=== PATIENT | male | born 1960 | race Caucasian/White ===

== ENCOUNTER 2017-08-31 10:08 | Emergency (ER) | payer OTHER ==
--- NOTE | 2017-08-31 10:30 | PDOC ---
History of Present Illness - General History Source: Patient Exam Limitations: No Limitations - History of Present Illness Initial Comments: 08/31/17 10:57 The patient is a 56 year old male, with a significant past medical history of chronic back pain, who presents to the emergency department with LLQ pain since yesterday. The patient describes his pain is sharp and intermittent in nature. He notes his pain often comes in wave with an episode of abdominal pain lasting hours. Pain is non-radiating and he ranks it a 8/10 in pain intensity, ranking it a 10/10 at its worst. He reports his pain is often made worse after a meal. Notes having flu like symptoms on Friday, including a runny nose and dry cough, which has since resolved. Notes not being pass a bowel movement for the past two days. He denies any recent fevers, chills, headache or dizziness. He denies any recent nausea, vomit, diarrhea. He denies any recent chest pain or shortness of breath. He denies any recent dysuria, frequency, urgency or hematuria. Allergies: NKA Past surgical history: Previous back surgeries. Social History: Nonsmoker. Denies EtOH use and recreational drug use. <Raymond Rushing - Last Filed: 08/31/17 10:59> <Mera Nuñez - Last Filed: 08/31/17 15:53> - General Chief Complaint: Pain Stated Complaint: ABDOMINAL PAIN Time Seen by Provider: 08/31/17 10:30 Past History <Raymond Rushing - Last Filed: 08/31/17 10:59> - Immunization History Td Vaccination: Yes Immunization Up to Date: Yes - Suicide/Smoking/Psychosocial Hx Smoking Status: Yes (QUIT X 1 YR AGO) Smoking History: Never smoked Have you smoked in the past 12 months: No Number of Cigarettes Smoked Daily: 0 Hx Alcohol Use: No Substance Use Type: Alcohol <Mera Nuñez - Last Filed: 08/31/17 15:53> - Past Medical History Allergies/Adverse Reactions: Allergies Allergy/AdvReac Type Severity Reaction Status Date / Time No Known Allergies Allergy Verified 08/31/17 11:45 Home Medications: Ambulatory Orders NK [No Known Home Medication] 08/31/17 Review of Systems - Review of Systems Able to Perform ROS?: Yes Comments:: 08/31/17 10:51 GENERAL/CONSTITUTIONAL: No fever or chills. No weakness. HEAD, EYES, EARS, NOSE AND THROAT: No change in vision. No ear pain or discharge. No sore throat. CARDIOVASCULAR: No chest pain or shortness of breath. RESPIRATORY: No cough, wheezing, or hemoptysis. GASTROINTESTINAL: +LLQ pain. No nausea, vomiting, diarrhea or constipation. GENITOURINARY: No dysuria, frequency, or change in urination. MUSCULOSKELETAL: No joint or muscle swelling or pain. No neck or back pain. SKIN: No rash NEUROLOGIC: No headache, vertigo, loss of consciousness, or change in strength/ sensation. ENDOCRINE: No increased thirst. No abnormal weight change. HEMATOLOGIC/LYMPHATIC: No anemia, easy bleeding, or history of blood clots. ALLERGIC/IMMUNOLOGIC: No hives or skin allergy. <Raymond Rushing - Last Filed: 08/31/17 10:59> *Physical Exam - Physical Exam Comments: 08/31/17 10:59 GENERAL: Awake, alert, and fully oriented, in moderate distress HEAD: No signs of trauma EYES: PERRLA, EOMI, sclera anicteric, conjunctiva clear ENT: Auricles normal inspection, hearing grossly normal, nares patent, oropharynx clear without exudates. Moist mucosa NECK: Normal ROM, supple, no lymphadenopathy, JVD, or masses LUNGS: Breath sounds equal, clear to auscultation bilaterally. No wheezes, and no crackles HEART: Regular rate and rhythm, normal S1 and S2, no murmurs, rubs or gallops ABDOMEN: Soft, tender in the LLQ normoactive bowel sounds. No guarding, no rebound. No masses EXTREMITIES: Normal range of motion, no edema. No clubbing or cyanosis. No cords, erythema, or tenderness NEUROLOGICAL: Cranial nerves II through XII grossly intact. Normal speech, normal gait SKIN: Warm, Dry, normal turgor, no rashes or lesions noted. <Raymond Rushing - Last Filed: 08/31/17 10:59> ED Treatment Course - LABORATORY CBC & Chemistry Diagram: 08/31/17 11:41 08/31/17 11:41 <Mera Nuñez - Last Filed: 08/31/17 15:53> Medical Decision Making - Medical Decision Making 08/31/17 15:42 Pt presents to the ED complaining of severe llq pain without fever, nausea or vomiting, or urinary complaints. Tender in the LLQ on my initial exam. Differential included diverticulitis or abscess, less likely obstruction. Labs and CT are negative for acute findings. Patient will be discharged with follow up with his PMD. <Mera Nuñez - Last Filed: 08/31/17 15:53> *DC/Admit/Observation/Transfer - Attestations Scribe Attestion: 08/31/17 10:52 Documentation prepared by Raymond Rushing, acting as medical management specialist for Mera Nuñez MD. <Raymond Rushing - Last Filed: 08/31/17 10:59> - Discharge Dispostion Admit: No <Mera Nuñez - Last Filed: 08/31/17 15:53> Diagnosis at time of Disposition: Abdominal pain Qualifiers: Abdominal location: left lower quadrant Qualified Code(s): R10.32 - Left lower quadrant pain - Discharge Dispostion Disposition: HOME Condition at time of disposition: Good - Referrals Referrals: Jameson Zapata MD [Staff Physician] - - Patient Instructions Printed Discharge Instructions: DI for Abdominal Pain-Adult Additional Instructions: You came to the ED to be evaluated for abdominal pain. Your cat scan and lab work showed no evidence of an emergent condition. You should return immediately to the ED for severe pain, severe nausea and vomiting, other new or worsening symptoms. Make sure that you follow up with your primary care doctor.
[2017-08-31] MEDS ORDERED: morphine CARPU-JECT 10 MG/1 ML DISP.SYRIN IVPUSH ONE (10:59)
[2017-08-31] MEDS ORDERED: morphine CARPU-JECT 10 MG/1 ML DISP.SYRIN ONE (11:25)
[2017-08-31 11:45] VITALS: TEMP 98.7; BMI 23.8
[2017-08-31 12:03] LABS: BASO % 0.3 % (0-2.0); HEMATOCRIT 44.5 % (35.4-49); HEMOGLOBIN 14.8 GM/dL (11.7-16.9); LYMPH % 6.1 % (8-40); MCH 31.6 pg (25.7-33.7); MCHC 33.3 g/dl (32.0-35.9); MEAN CELL VOLUME 95.1 fl (80-96); MEAN PLT VOLUME 8.3 fl (7.5-11.1); NEUT % 85.6 % (42.8-82.8); PLATELET COUNT 230 K/MM3 (134-434); RBC 4.68 M/mm3 (4.00-5.60); RDW 14.2 % (11.9-15.9); WHITE BLOOD COUNT 11.7 K/mm3 (4.0-10.0)
[2017-08-31 12:26] LABS: ANION GAP 10 (8-16); BILIRUBIN,TOTAL 0.3 mg/dL (0.2-1.0); BLOOD UREA NITROGEN 15 mg/dL (7-18); CALCIUM 8.6 mg/dL (8.5-10.1); CHLORIDE 101 mmol/L (98-107); CO2 24 mmol/L (21-32); CREATININE 1.2 mg/dL (0.7-1.3); GLUCOSE,RANDOM 110 mg/dL (74-106); POTASSIUM 3.9 mmol/L (3.5-5.1); SGOT/AST 28 U/L (15-37); SGPT/ALT 31 U/L (12-78); SODIUM 135 mmol/L (136-145); TOT PROT 7.6 g/dl (6.4-8.2)
[2017-08-31 12:27] LABS: ALK PHOS 77 U/L (45-117)
[2017-08-31 15:26] LABS: URINE APPEARANCE CLEAR; URINE BILIRUBIN NEGATIVE (NEGATIVE); URINE BLOOD NEGATIVE (NEGATIVE); URINE COLOR COLORLESS; URINE GLUCOSE (UA) NEGATIVE (NEGATIVE); URINE KETONE NEGATIVE (NEGATIVE); URINE LEUK ESTERASE NEGATIVE (NEGATIVE); URINE NITRITE NEGATIVE (NEGATIVE); URINE PROTEIN NEGATIVE (NEGATIVE); URINE UROBILINOGEN NEGATIVE mg/dL (0.2-1.0)
[2017-08-31 15:59] VITALS: BP 149/85; PULSE 79
== END 2017-08-31 16:00 | disposition home or self-care (01) ==
LOC: JER 10:08
DX: R10.32 Left lower quadrant pain (principal); Z87.891 Personal history of nicotine dependence
CPT/HCPCS: 36415; 74177-TC; 80053; 81003; 85025; 99283-25

== ENCOUNTER 2022-05-27 08:17 | Emergency (ER) | payer OTHER ==
[2022-05-27 08:31] VITALS: BP 145/71; PULSE 72; RESP 16; TEMP 97.7; BMI 25.0
[2022-05-27] MEDS ORDERED: ACETAMINOPHEN 500 MG TABLET (FP) PO ONE ×2 (09:02→09:30)
[2022-05-27] MEDS ORDERED: METHOCARBAMOL 500 MG TABLET PO ONE (09:19)
[2022-05-27] MEDS ORDERED: KETOROLAC TROMETHAMINE 30 MG/1 ML VIAL IM ONE (09:19)
[2022-05-27] MEDS ORDERED: LIDOCAINE 5% TOPICAL PATCH TP ONE (09:20)
[2022-05-27] MEDS ORDERED: ACETAMINOPHEN 325 MG TABLET (FP) ONE (09:23)
[2022-05-27] MEDS ORDERED: KETOROLAC TROMETHAMINE 30 MG/1 ML VIAL ONE (09:27)
[2022-05-27] MEDS ORDERED: LIDOCAINE 5% TOPICAL PATCH ONE (09:27)
[2022-05-27] MEDS ORDERED: METHOCARBAMOL 500 MG TABLET ONE (09:27)
[2022-05-27] MEDS ORDERED: LIDOCAINE PATCH REMOVAL MC SCH (22:00)
== END 2022-05-27 11:50 | disposition home or self-care (01) ==
LOC: JER 08:17
PROC: 3E0233Z Introduction of Anti-inflammatory into Muscle, Percutaneous Approach (ICD-10-PCS; principal; 2022-05-27)
DX: M54.50 Low back pain, unspecified (principal)
CPT/HCPCS: 72125-TC; 72128-TC; 72131-TC; 99285-25

== ENCOUNTER 2025-01-11 08:54 | Emergency (ER) | payer OTHER ==
[2025-01-11] MEDS ORDERED: predniSONE 20 MG TABLET (UD) ONE (09:09)
[2025-01-11 09:11] VITALS: BP 149/67; PULSE 72; RESP 20; TEMP 99.1; BMI 24.0
[2025-01-11] MEDS: predniSONE 20 MG TABLET (UD) PO ONE (09:11)
== END 2025-01-11 09:32 | disposition home or self-care (01) ==
LOC: FER 08:54
DX: L23.7 Allergic contact dermatitis due to plants, except food (principal); L29.9 Pruritus, unspecified
CPT/HCPCS: 99283-25